=== PATIENT | female | born 1960 | race Caucasian/White ===

== ENCOUNTER 2020-01-19 08:42 | Emergency (ER) | payer OTHER, SELFPAY ==
[2020-01-19 08:51] VITALS: BP 157/86; PULSE 79; RESP 20; TEMP 36.7; O2SAT 100; BMI 23.8
--- NOTE | 2020-01-19 09:01 | DI.RAD.S_ITS ---
PROCEDURE: XR CHEST 1V INDICATIONS: chest pain TECHNIQUE: One view of the chest was acquired. COMPARISON: None. FINDINGS: Surgical changes and devices: None. Lungs and pleura: Lungs are clear. No pleural effusions or pneumothorax. Mediastinum: Mediastinal contours appear normal. Heart size is minimally prominent. Bones and chest wall: No suspicious bony lesions. Overlying soft tissues appear unremarkable. IMPRESSION: No acute pulmonary process. Dictated by: Neida Montero M.D. on 01/19/2020 at 9:49 Approved by: Neida Montero M.D. on 01/19/2020 at 9:55
[2020-01-19 09:10] VITALS: BP 130/80; BP 137/85; BP 150/89
--- NOTE | 2020-01-19 09:16 | ED.SYNCOPE ---
HPI - Syncope General Chief Complaint: Syncope Stated Complaint: Abdominal pain Time Seen by Provider: 01/19/20 08:58 Source: patient and EMS Mode of arrival: EMS Limitations: no limitations History of Present Illness HPI narrative: HPI: The patient is a 59-year-old female who was transported to the emergency department by ambulance after she had a syncopal attack at home that lasted approximately 20-30 seconds with gurgling respirations. According to the patient's who was present the patient passed out on the edge of the bed and he let her down to the floor. She had no convulsive or jerking activity typically seen with a seizure. Prior to passing-out the patient developed severe left lower quadrant abdominal pain that was sharp and stabbing as well as a severe persisting crampy in her left lower leg. She denies any recent fall or injury. Recently the patient had a dynamic cardiac stress test which was reported to have been normal. Eighteen months ago the patient had a right middle lobectomy for adenocarcinoma of the lung. She has not received any chemotherapy or radiation therapy. She is being evaluated and scanned every 6 months. She denies a history of diabetes mellitus seizure disorder stroke previous myocardial infarction history of COPD or asthma, migraines, TB, HIV, or hepatitis. She has had no known exposure to arm co bit 19. 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 She does not smoke cigarettes, vapor, chew tobacco, or use any drugs. She periodically drinks alcohol. She denies a history of any recent fever chills or sweats. She has a mild generalized headache at the present time without numbness tingling paresthesias anesthesia is pre CIS or paralysis. She has had no change in vision loss of vision or diplopia. She has had no recent nasal drainage sore throat trouble swallowing. She denies any chest pain cough shortness of breath but had palpitations last night while watching television. She has left lower quadrant abdominal pain as noted. However she has had no nausea vomiting hematemesis coffee-ground emesis diarrhea melena or hematochezia and no urinary symptoms. Related Data Previous Rx's Medication Instructions Recorded cyclobenzaprine 10 mg PO TID PRN #15 tab 01/19/20 naproxen [Naprosyn] 500 mg PO BID PRN #20 tab 01/19/20 Allergies Allergy/AdvReac Type Severity Reaction Status Date / Time iodine Allergy Mild Rash Verified 01/19/20 08:51 codeine AdvReac Verified 01/19/20 08:51 oxycodone AdvReac Verified 01/19/20 08:51 Review of Systems Review of Systems Narrative: All review of systems were negative except for those mentioned in the history of present illness. Patient History Social History Smoking Status: Never smoker Smoking Status: Never smoker alcohol intake frequency: holidays/special occasions only Substance Use Type: does not use Exam Narrative Exam Narrative: PHYSICAL EXAM: CONSTITUTIONAL: Awake, Alert, Oriented, Coherent, Cooperative in NAD. Does not appear toxic or ill. She is wearing a mask. HEAD: AT/NC EENT: PERRL, FROM of eyes, no discharge. No epistaxis or nasal drainage Oral mucosa is moist and pink, posterior pharynx is without erythema or exudate. NECK: Supple, no obvious JVD, Trachea is midline without stridor, no palpable LN. SPINE: No gross deformity, no palpable tenderness of the cervical, thoracic, lumbar or sacral spine. No CVA tenderness. THORAX: No deformity, retractions, chest wall tenderness. LUNGS: Clear with symmetrical breath sounds without respiratory distress HEART: Normal heart tones, regular rhythm and rate without murmur. ABDOMEN: Soft, non-tender, without guarding, rebound, rigidity or palpable mass. EXTREMITIES: No edema, cyanosis, deformity or calf tenderness SKIN: No rash, bruising, petechiae or purpura. NEURO: Awake, alert, oriented, conversive, cranial nerves II-XII are symmetrical , moves all 4 extremities . Initial Vital Signs Initial Vital Signs: Vital Signs Temperature 98.1 F 01/19/20 08:51 Pulse Rate 79 01/19/20 08:51 Respiratory Rate 20 01/19/20 08:51 Blood Pressure 157/86 H 01/19/20 08:51 Pulse Oximetry 100 01/19/20 08:51 Course Course Course Narrative: 1021: The patient's CT of her head with and without contrast and of the abdomen remains pending. The patient has normal renal function with a GFR greater than 60. Her white blood count hemoglobin are normal. Glucose is 122. Liver function test AST is slightly elevated at 38 ALT slightly elevated at 41. Her single-view chest x-ray is negative. CPK is 78. Lactate and troponin are both pending at this time. Clinically I believe that the patient had muscle spasms and left lower quadrant abdominal pain which resulted in a probable vasovagal syncopel. 11:05 CT of the patient's head reveals no acute intracranial pathology or problem. CT of the abdomen reveals; 1. No definite acute abnormality within the abdomen or pelvis. 2. Mild nodular appearance to the wall of the gallbladder is nonspecific and may be related to adenomyomatosis. However, early gallbladder wall inflammation cannot be completely excluded. Please consider a gallbladder ultrasound for further evaluation. 3. Possible mild constipation. Patient's urine reveals 1-5 white blood cells per high-power field, 30-100 white blood cells per high-power field squamous epithelial cells 1-5 per high-power field which is normal urine bacteria many urine is cultured. The patient will be evaluated for urinary tract infection. Orders Ordered: Discontinued Medications Sodium Chloride (Normal Saline 0.9%) 1,000 mls @ 1,000 mls/hr IV BOLUS ONE Stop: 01/19/20 10:13 Last Infusion: 01/19/20 11:46 Dose: 0 mls/hr Documented by: Admin: 01/19/20 09:49 Dose: 1,000 mls/hr Documented by: LÓPEZ Ketorolac Tromethamine (Toradol) 30 mg IV NOW ONE Stop: 01/19/20 09:12 Last Admin: 01/19/20 09:48 Dose: 30 mg Documented by: LÓPEZ Lorazepam (Ativan) 1 mg IV NOW ONE Stop: 01/19/20 09:12 Last Admin: 01/19/20 10:28 Dose: 1 mg Documented by: CARLOTA Vital Signs Vital signs: Vital Signs - 8 hr 01/19/20 08:51 01/19/20 09:10 01/19/20 09:50 Temperature 98.1 F Pulse Rate 79 Pulse Rate [Orthostatic Lying] 91 H Pulse Rate [Orthostatic Standing] 73 Respiratory Rate 20 Blood Pressure 157/86 H Blood Pressure [Orthostatic Lying] 130/80 137/85 Blood Pressure [Orthostatic Sitting] 150/89 H 150/89 H Blood Pressure [Orthostatic Standing] 137/85 130/80 Blood Pressure [Right Arm] Pulse Oximetry 100 01/19/20 10:00 Temperature Pulse Rate 79 Pulse Rate [Orthostatic Lying] Pulse Rate [Orthostatic Standing] Respiratory Rate 12 Blood Pressure Blood Pressure [Orthostatic Lying] Blood Pressure [Orthostatic Sitting] Blood Pressure [Orthostatic Standing] Blood Pressure [Right Arm] 137/85 Pulse Oximetry 100 MDM - Syncope Medical Records Attestation: I reviewed the patient's medical records. Lab Data Attestation: I reviewed the patient's lab results. Result diagrams: 01/19/20 09:19 01/19/20 09:19 Labs: Lab Results 01/19/20 01/19/20 01/19/20 Range/Units 09:19 09:19 09:19 WBC 9.2 (4.5-11.0) X10^3/uL RBC 4.25 (4.0-5.2) X10^6/uL Hgb 12.9 (12.0-16.0) g/dL Hct 38.6 (36-46) % MCV 90.9 (80-100) fL MCH 30.5 (26-34) PG MCHC 33.5 (30-36) % RDW 12.8 (11.6-14.8) % Plt Count 262 (150-400) X10^3/uL Neut % (Auto) 67.2 (50-75) % Lymph % (Auto) 22.8 L (25-40) % [place] % (Auto) 7.9 (3-14) % Eos % (Auto) 1.6 L (2-4) % Baso % (Auto) 0.5 (0-2) % Neut # (Auto) 6200 (6712-0154) /uL Lymph # (Auto) 2100 (2398-7882) /uL [place] # (Auto) 700 (0-900) /uL Eos # (Auto) 200 (0-450) /uL Baso # (Auto) 0 (0-100) /uL PT 11.6 (10.1-12.7) SECONDS INR 1.0 (0.9-1.3) APTT 28 (26.4-36.2) SECONDS Sodium 139 (137-145) mmol/L Potassium 3.8 (3.4-5.1) mmol/L Chloride 102 (98-107) mmol/L Carbon Dioxide 29 (22-32) mmol/L BUN 14 (7-17) mg/dL Creatinine 0.68 (0.52-1.04) mg/dL Estimated GFR > 60.0 (>60) mL/min BUN/Creatinine Ratio 20.6 (6-22) Glucose 122 H (70-100) mg/dL Lactate (0.7-2.1) mmol/L Calcium 9.4 (8.4-10.2) mg/dL Magnesium (1.6-2.3) mg/dL Total Bilirubin 0.6 (0.2-1.3) mg/dL AST 38 H (14-36) IU/L ALT 41 H (<35) IU/L Alkaline Phosphatase 95 (38-126) U/L Total Creatine Kinase 78 (30-135) U/L CK-MB (CK-2) TNP CK-MB (CK-2) Rel Index TNP Troponin I < 0.012 (0.01-0.034) ng/mL Total Protein 8.6 H (6.3-8.2) g/dL Albumin 4.5 (3.5-5.0) g/dL Globulin 4.1 (1.7-4.1) g/dL Albumin/Globulin Ratio 1.1 (1.0-2.8) Lipase 281 (23-300) U/L TSH (0.47-4.68) uIU/mL Urine RBC (0-5/HPF) Urine WBC (0-5/HPF) Ur Squamous Epith Cells (0-5/HPF) Urine Bacteria (None) Ur Culture Indicated? 01/19/20 01/19/20 01/19/20 Range/Units 09:19 09:19 10:07 WBC (4.5-11.0) X10^3/uL RBC (4.0-5.2) X10^6/uL Hgb (12.0-16.0) g/dL Hct (36-46) % MCV (80-100) fL MCH (26-34) PG MCHC (30-36) % RDW (11.6-14.8) % Plt Count (150-400) X10^3/uL Neut % (Auto) (50-75) % Lymph % (Auto) (25-40) % [place] % (Auto) (3-14) % Eos % (Auto) (2-4) % Baso % (Auto) (0-2) % Neut # (Auto) (7445-5708) /uL Lymph # (Auto) (6771-7036) /uL [place] # (Auto) (0-900) /uL Eos # (Auto) (0-450) /uL Baso # (Auto) (0-100) /uL PT (10.1-12.7) SECONDS INR (0.9-1.3) APTT (26.4-36.2) SECONDS Sodium (137-145) mmol/L Potassium (3.4-5.1) mmol/L Chloride (98-107) mmol/L Carbon Dioxide (22-32) mmol/L BUN (7-17) mg/dL Creatinine (0.52-1.04) mg/dL Estimated GFR (>60) mL/min BUN/Creatinine Ratio (6-22) Glucose (70-100) mg/dL Lactate (0.7-2.1) mmol/L Calcium (8.4-10.2) mg/dL Magnesium 1.9 (1.6-2.3) mg/dL Total Bilirubin (0.2-1.3) mg/dL AST (14-36) IU/L ALT (<35) IU/L Alkaline Phosphatase (38-126) U/L Total Creatine Kinase (30-135) U/L CK-MB (CK-2) CK-MB (CK-2) Rel Index Troponin I (0.01-0.034) ng/mL Total Protein (6.3-8.2) g/dL Albumin (3.5-5.0) g/dL Globulin (1.7-4.1) g/dL Albumin/Globulin Ratio (1.0-2.8) Lipase (23-300) U/L TSH 2.18 (0.47-4.68) uIU/mL Urine RBC 1-5/hpf (0-5/HPF) Urine WBC 30-100/hpf H (0-5/HPF) Ur Squamous Epith Cells 1-5 /hpf (0-5/HPF) Urine Bacteria Many (>30) H (None) Ur Culture Indicated? Specimen cultured 01/19/20 Range/Units 10:10 WBC (4.5-11.0) X10^3/uL RBC (4.0-5.2) X10^6/uL Hgb (12.0-16.0) g/dL Hct (36-46) % MCV (80-100) fL MCH (26-34) PG MCHC (30-36) % RDW (11.6-14.8) % Plt Count (150-400) X10^3/uL Neut % (Auto) (50-75) % Lymph % (Auto) (25-40) % [place] % (Auto) (3-14) % Eos % (Auto) (2-4) % Baso % (Auto) (0-2) % Neut # (Auto) (6141-8514) /uL Lymph # (Auto) (7172-9363) /uL [place] # (Auto) (0-900) /uL Eos # (Auto) (0-450) /uL Baso # (Auto) (0-100) /uL PT (10.1-12.7) SECONDS INR (0.9-1.3) APTT (26.4-36.2) SECONDS Sodium (137-145) mmol/L Potassium (3.4-5.1) mmol/L Chloride (98-107) mmol/L Carbon Dioxide (22-32) mmol/L BUN (7-17) mg/dL Creatinine (0.52-1.04) mg/dL Estimated GFR (>60) mL/min BUN/Creatinine Ratio (6-22) Glucose (70-100) mg/dL Lactate 1.1 (0.7-2.1) mmol/L Calcium (8.4-10.2) mg/dL Magnesium (1.6-2.3) mg/dL Total Bilirubin (0.2-1.3) mg/dL AST (14-36) IU/L ALT (<35) IU/L Alkaline Phosphatase (38-126) U/L Total Creatine Kinase (30-135) U/L CK-MB (CK-2) CK-MB (CK-2) Rel Index Troponin I (0.01-0.034) ng/mL Total Protein (6.3-8.2) g/dL Albumin (3.5-5.0) g/dL Globulin (1.7-4.1) g/dL Albumin/Globulin Ratio (1.0-2.8) Lipase (23-300) U/L TSH (0.47-4.68) uIU/mL Urine RBC (0-5/HPF) Urine WBC (0-5/HPF) Ur Squamous Epith Cells (0-5/HPF) Urine Bacteria (None) Ur Culture Indicated? Urine Dip Bedside Urine Glucose Negative Bedside Urine Bilirubin - Negative Bedside Urine Ketone - Negative Urine Specific [place] 1.015 Bedside Urine Occult Blood +/- Bedside Urine pH 7.0 Bedside Urine Protein - Negative Bedside Urine Urobilinogen - Negative Bedside Urine Nitrite + Positive Bedside Urine Leukocytes ++ 125 Esterase ECG Data Attestation: I personally reviewed and interpreted this ECG as follows: Interpretation: The patient's EKG obtained on January 18 at 09:2 2:26 a.m. reveals a sinus rhythm with a ventricular rate of 72. Intervals are normal. Center Line is normal. The patient has nonspecific ST segment changes. T-waves are inverted in leads III and V1 a normal variant. The EKG otherwise looks normal. Discharge Plan Departure Patient Disposition: Home Clinical Impression: Vasovagal syncope, Dehydration Discharge Date/Time: 01/19/20 11:51 Instructions: DI for Syncope in Adults (Fainting) Activity Restrictions/Additional Instructions: 1. Call your doctor's office today and make a follow-up appointment for 48-72 hours to be re-evaluated. 2. When you develop abdominal pain or leg cramps be careful when sitting up and standing up because you can become dizzy lightheaded and pass out. 3. Drink 2-3 L of fluid per day to make sure that you are well hydrated. 4. For the cramps in your legs take cyclobenzaprine 10 mg 3 times a day as needed. Take a pill before you go to bed at night. This may make you sleepy. 5. For pain and discomfort take Naprosyn 500 mg twice a day. 6. If you develop worsening pain, fever, chest pain, shortness of breath, racing of your heart, seizure activity, recurrent passing out return to the emergency department or proceed to the nearest emergency department where you are. 7. Follow-up and discuss the syncope evaluation with your primary care physician. You may need to have a Holter monitor echocardiogram and carotid Doppler studies. These can all be obtained as an outpatient. Prescriptions: New cyclobenzaprine 10 mg tablet 10 mg PO TID PRN (Reason: muscle spasm) Qty: 15 RF: 0 naproxen [Naprosyn] 500 mg tablet 500 mg PO BID PRN (Reason: pain) Qty: 20 RF: 0
[2020-01-19 09:27] LABS: Add Manual Diff / Slide Review NO; Basophils Absolute Auto 0 /uL (0-100); Basophils Percent Auto 0.5 % (0-2); Eosinophils Absolute Auto 200 /uL (0-450); Eosinophils Percent Auto 1.6 % (2-4); Hematocrit 38.6 % (36-46); Hemoglobin 12.9 g/dL (12.0-16.0); Lymphocytes Absolute Auto 2100 /uL (1100-4500); Lymphocytes Percent Auto 22.8 % (25-40); Mean Corpuscular HGB Conc 33.5 % (30-36); Mean Corpuscular Hemoglobin 30.5 PG (26-34); Mean Corpuscular Volume 90.9 fL (80-100); Monocytes Absolute Auto 700 /uL (0-900); Monocytes Percent Auto 7.9 % (3-14); Neutrophils Absolute Auto 6200 /uL (1500-7000); Neutrophils Percent Auto 67.2 % (50-75); Platelet Count 262 X10^3/uL (150-400); Red Blood Cell Count 4.25 X10^6/uL (4.0-5.2); Red Cell Distribution Width 12.8 % (11.6-14.8); White Blood Cell Count 9.2 X10^3/uL (4.5-11.0)
[2020-01-19 09:35] LABS: Prothrombin Time 11.6 SECONDS (10.1-12.7)
[2020-01-19 09:38] LABS: PTT Partial Thromboplastin Tim 28 SECONDS (26.4-36.2)
[2020-01-19 09:40] LABS: Alanine Aminotransferase 41 IU/L (<35); Albumin 4.5 g/dL (3.5-5.0); Albumin Globulin Ratio 1.1 (1.0-2.8); Alkaline Phosphatase 95 U/L (38-126); Aspartate Aminotransferase 38 IU/L (14-36); BUN Creatinine Ratio 20.6 (6-22); Bilirubin Total 0.6 mg/dL (0.2-1.3); Blood Urea Nitrogen 14 mg/dL (7-17); Calcium 9.4 mg/dL (8.4-10.2); Carbon Dioxide 29 mmol/L (22-32); Chloride 102 mmol/L (98-107); Creatine Kinase 78 U/L (30-135); Estimated Glomerular Filt Rate > 60.0 mL/min (>60); Globulin 4.1 g/dL (1.7-4.1); Glucose 122 mg/dL (70-100); HEMOLYSIS < 15 (0-50); Lipase 281 U/L (23-300); Potassium 3.8 mmol/L (3.4-5.1); Sodium 139 mmol/L (137-145); Total Protein 8.6 g/dL (6.3-8.2)
[2020-01-19] MEDS: KETOROLAC 60 MG/2 ML VIAL 30 MG IV (09:48)
[2020-01-19] MEDS: SODIUM CHLORIDE 0.9% 1,000 ML 1000 ML IV (09:49)
[2020-01-19 09:50] VITALS: BP 130/80; BP 137/85; BP 150/89; PULSE 73; PULSE 91
[2020-01-19 09:51] LABS: Magnesium 1.9 mg/dL (1.6-2.3)
[2020-01-19 09:52] LABS: Troponin I < 0.012 ng/mL (0.01-0.034)
[2020-01-19 10:00] VITALS: BP 137/85; PULSE 79; RESP 12; O2SAT 100
--- NOTE | 2020-01-19 10:13 | DI.CT.S_ITS ---
PROCEDURE: CT HEAD/BRAIN WO/W CON INDICATIONS: Mild headache, h/o of lung cancer, syncope TECHNIQUE: 4.5 mm thick angled axial sections acquired from the foramen magnum to the vertex before and after the administration of intravenous contrast, with coronal and sagittal reformats. For radiation dose reduction, the following was used: automated exposure control, adjustment of mA and/or kV according to patient size. COMPARISON: None. FINDINGS: Image quality: Excellent. CSF Spaces: Basal cisterns are patent. No extra-axial fluid collections. Ventricles are normal in size and shape. Brain: No midline shift. No intracranial bleeds or masses. No abnormal intracranial enhancement. Braun-white interface appears normal. Cerebellar tonsils are low-lying. Skull and face: Calvarium and visualized facial bones appear intact, without suspicious lesions. Sinuses: Visualized sinuses and mastoids are clear. IMPRESSION: 1. No acute intracranial process. Dictated by: Neida Montero M.D. on 01/19/2020 at 10:30 Approved by: Neida Montero M.D. on 01/19/2020 at 10:32
--- NOTE | 2020-01-19 10:13 | DI.CT.S_ITS ---
PROCEDURE: CT ABDOMEN PELVIS W CON INDICATIONS: Severe left lower quadrant abdominal pain TECHNIQUE: After the administration of oral and intravenous contrast, 5 mm thick sections acquired from the diaphragms to the symphysis. 5 mm thick coronal and sagittal reformats were performed. For radiation dose reduction, the following was used: automated exposure control, adjustment of mA and/or kV according to patient size. COMPARISON: None. FINDINGS: Image quality: Diagnostic. ABDOMEN: Lung bases: Lung bases are clear. Heart size is normal. Solid organs: Liver is normal in size and enhancement. The gallbladder is not enlarged. There is slight nodularity to the wall of the gallbladder. There may be a polyp versus gallstone within the neck of the gallbladder. Biliary system is non-dilated. Pancreas enhances normally. Spleen is normal in size and enhancement. No adrenal nodules. Kidneys are normal in size and enhancement, without hydronephrosis. Peritoneum and bowel: Stomach, small bowel, and colon loops are normal in caliber and wall thickness. No free fluid or air. No loculated fluid collections are evident. Moderate amount of residual stool is seen within the colon. The appendix is not clearly identified. Nodes and vessels: No retroperitoneal or mesenteric adenopathy. Aorta and inferior vena cava are normal in caliber. Miscellaneous: No ventral hernias. PELVIS: Genitourinary: Bladder wall thickness is normal. The uterus and ovaries are not enlarged. Miscellaneous: No inguinal hernias or adenopathy. Bones: No suspicious bony lesions. No vertebral body compression fractures. IMPRESSION: 1. No definite acute abnormality within the abdomen or pelvis. 2. Mild nodular appearance to the wall of the gallbladder is nonspecific and may be related to adenomyomatosis. However, early gallbladder wall inflammation cannot be completely excluded. Please consider a gallbladder ultrasound for further evaluation. 3. Possible mild constipation. Dictated by: Nadir Wells M.D. on 01/19/2020 at 9:33 Approved by: Nadir Wells M.D. on 01/19/2020 at 9:35
[2020-01-19 10:22] LABS: Thyroid Stimulating Hormone 2.18 uIU/mL (0.47-4.68)
[2020-01-19 10:26] LABS: Lactate (Lactic Acid) 1.1 mmol/L (0.7-2.1)
[2020-01-19 10:27] LABS: Bacteria Urine Many (>30); RBC Urine 1-5/HPF (0-5/HPF); Squamous Epithelial Cell Urine 1-5 /HPF (0-5/HPF); WBC Urine 30-100/HPF (0-5/HPF)
[2020-01-19 10:28] LABS: Culture Indicated Urine Specimen Cultured
[2020-01-19] MEDS: LORazepam 2 MG/ML INJ 1 MG IV (10:28)
[2020-01-19 11:26] VITALS: BP 130/72; PULSE 73; RESP 16; O2SAT 100
[2020-01-19 11:47] VITALS: BP 107/69; PULSE 82; RESP 12; O2SAT 99
== END 2020-01-19 11:51 | disposition home or self-care (01) ==
PROVIDERS: Emergency Provider Emergency Medicine
DX: R55 Syncope and collapse (principal); E86.0 Dehydration; R51 Headache; R10.32 Left lower quadrant pain; R07.9 Chest pain, unspecified; Z85.118 Personal history of other malignant neoplasm of bronchus and lung
CPT/HCPCS: 36415; 70470; 71045; 74177; 80053; 81003; 81015; 82550; 83605; 83690; 83735; 84443; 84484; 85025; 85610; 85730; 87077; 87086; 87186; 93005; 96361; 96374; 96375; 99285; J1885; J2060; Q9967

== ENCOUNTER 2020-04-18 07:14 | Emergency (ER) | payer OTHER, SELFPAY ==
[2020-04-18] VITALS (7 sets, daily range): BP systolic 122–169; BP diastolic 73–85; PULSE 61–82; RESP 12–20; TEMP 36.9; O2SAT 97–100; BMI 24.2
--- NOTE | 2020-04-18 07:29 | DI.RAD.S_ITS ---
PROCEDURE: XR CHEST 1V INDICATIONS: Chest pain TECHNIQUE: One view of the chest was acquired. COMPARISON: None. FINDINGS: Surgical changes and devices: Chains sutures and a surgical clip project over the right hilum and lateral aspect of the right main pulmonary artery. Lungs and pleura: There is a juxtaphrenic peak of the right hemidiaphragm consistent with volume loss related to partial lobectomy. No focal air space opacity identified. The pleural spaces appear clear. Mediastinum: Mediastinal contours appear normal. Heart size is normal. Bones and chest wall: No suspicious bony lesions. Overlying soft tissues appear unremarkable. IMPRESSION: No acute cardiopulmonary process demonstrated. Post-surgical changes in the right lung as described above Dictated by: Bran Terrell M.D. on 04/18/2020 at 8:39 Approved by: Bran Terrell M.D. on 04/18/2020 at 8:43
--- NOTE | 2020-04-18 07:32 | ED.CHESTPAIN ---
HPI - Chest Pain General Chief Complaint: Chest Pain Stated Complaint: chest pain through to back Time Seen by Provider: 04/18/20 07:32 Source: patient Mode of arrival: Ambulatory Limitations: no limitations History of Present Illness HPI narrative: Patient is a 59-year-old female history of hypertension presenting with chest pain. She says she woke up this morning and felt some chest tightness radiating through to her back. She says it has improved now. She thinks maybe it was worse with exertion. She denies any shortness of breath. She has never experienced anything like this in the past prior history of coronary artery disease. MD complaint: chest pain Onset (ago): minute(s) Duration: constant Onset: during rest Pain location: substernal Severity: moderate Quality: tightness Pain radiation: back Related Data Previous Rx's Medication Instructions Recorded cyclobenzaprine 10 mg PO TID PRN #15 tab 01/19/20 naproxen [Naprosyn] 500 mg PO BID PRN #20 tab 01/19/20 Allergies Allergy/AdvReac Type Severity Reaction Status Date / Time iodine Allergy Mild Rash Verified 04/18/20 07:36 codeine AdvReac Verified 04/18/20 07:36 oxycodone AdvReac Verified 04/18/20 07:36 Review of Systems Review of Systems Narrative: GENERAL: Denies chills, fatigue, malaise, fever, sweats, travel HEENT: Denies sinus pain, ear pain, sore throat, difficulty swallowing, neck pain RESPIRATORY: Denies dyspnea, cough, wheezing, hemoptysis, sputum. CARDIOVASCULAR: See HPI GASTROINTESTINAL: Denies nausea, vomiting, abdominal pain, diarrhea, constipation, melena. : Denies dysuria, frequency, incontinence, hematuria, urinary retention, flank pain. MUSCULOSKELETAL: Denies weakness, joint pain, or bony pain SKIN: No rash, no erythema, no pruritus NEUROLOGIC: Denies weakness, dizziness, headache, numbness, change in speech, confusion PSYCHIATRIC: No concerning psychosocial issues. 12 point review of systems is negative except for those stated above and HPI Patient History Medical History Hyperlipidemia (Acute) Social History Smoking Status: Never smoker Smoking Status: Never smoker alcohol intake frequency: holidays/special occasions only Substance Use Type: does not use Exam Initial Vital Signs Initial Vital Signs: Vital Signs Temperature 98.4 F 04/18/20 07:20 Pulse Rate 80 04/18/20 07:20 Respiratory Rate 20 04/18/20 07:20 Blood Pressure 169/85 H 04/18/20 07:20 Pulse Oximetry 100 04/18/20 07:20 GENERAL: Well-appearing, well-nourished and in no acute distress. HEENT: Head atraumatic,EOMI, pupils reactive, face symmetric CARDIOVASCULAR: Regular rate and rhythm without murmurs, rubs or gallops. RESPIRATORY: Breath sounds equal bilaterally, no wheezes rales or rhonchi. ABDOMEN: Soft, nontender. Normoactive bowel sounds all 4 quadrants. No guarding or rebound. EXTREMITIES: Normal range of motion, no clubbing or edema. Neurovascularly intact NEUROLOGICAL: Alert and oriented x4.Normal gait and speech. Cranial nerves II through XII grossly intact. SKIN: Warm, dry, no laceration, no petechiae, no rashes or lesions. Scores HEART Score Heart Score history: Slightly Suspicious Heart Score EKG: Normal Heart Score Age: 45-64 years old Heart Score risk factors: 1-2 risk factors Heart Score troponin: < or = to normal limit Heart Score Total: 2 Course Orders Ordered: ED Orders 04/18/20 07:15 Complete Blood Count AUTO DIFF Stat Comprehensive Metabolic Panel Stat Lipase Stat Partial Thromboplastin Time Stat Prothrombin Time INR Stat Troponin & CK Cardiac Panel Stat 04/18/20 07:29 XR chest 1V Stat 04/18/20 07:42 EKG-12 Lead Stat 04/18/20 11:07 Troponin I Stat Discontinued Medications Aspirin (Aspirin Chew) 324 mg PO NOW ONE Stop: 04/18/20 07:43 Last Admin: 04/18/20 07:49 Dose: 324 mg Documented by: LÓPEZ Nitroglycerin (Nitrostat) 0.4 mg SL NOW ONE Stop: 04/18/20 07:43 Last Admin: 04/18/20 07:50 Dose: 0.4 mg Documented by: LÓPEZ Vital Signs Vital signs: Vital Signs - 8 hr 04/18/20 07:20 04/18/20 07:50 04/18/20 08:00 Temperature 98.4 F Pulse Rate 80 82 81 Respiratory Rate 20 20 Blood Pressure 169/85 H 145/78 H Blood Pressure [Right Arm] 123/83 Pulse Oximetry 100 97 04/18/20 09:00 04/18/20 10:30 04/18/20 11:28 Temperature Pulse Rate 62 68 64 Respiratory Rate 12 20 19 Blood Pressure Blood Pressure [Right Arm] 122/75 128/73 140/79 Pulse Oximetry 97 98 97 04/18/20 12:03 Temperature Pulse Rate 61 Respiratory Rate 16 Blood Pressure 132/74 Blood Pressure [Right Arm] Pulse Oximetry 97 MDM - Chest Pain Lab Data Attestation: I reviewed the patient's lab results. Result diagrams: 04/18/20 07:15 04/18/20 07:15 Labs: Lab Results 04/18/20 04/18/20 04/18/20 Range/Units 07:15 07:15 07:15 WBC 6.4 (4.5-11.0) X10^3/uL RBC 4.24 (4.0-5.2) X10^6/uL Hgb 13.1 (12.0-16.0) g/dL Hct 38.8 (36-46) % MCV 91.6 (80-100) fL MCH 30.9 (26-34) PG MCHC 33.8 (30-36) % RDW 12.5 (11.6-14.8) % Plt Count 275 (150-400) X10^3/uL Neut % (Auto) 40.6 L (50-75) % Lymph % (Auto) 42.6 H (25-40) % [place] % (Auto) 12.3 (3-14) % Eos % (Auto) 3.8 (2-4) % Baso % (Auto) 0.7 (0-2) % Neut # (Auto) 2600 (0044-0659) /uL Lymph # (Auto) 2700 (7290-3326) /uL [place] # (Auto) 800 (0-900) /uL Eos # (Auto) 200 (0-450) /uL Baso # (Auto) 0 (0-100) /uL PT 10.8 (10.1-12.7) SECONDS INR 0.9 (0.9-1.3) APTT 32 D (26.4-36.2) SECONDS Sodium 141 (137-145) mmol/L Potassium 3.5 (3.4-5.1) mmol/L Chloride 104 (98-107) mmol/L Carbon Dioxide 30 (22-32) mmol/L BUN 11 (7-17) mg/dL Creatinine 0.60 (0.52-1.04) mg/dL Estimated GFR > 60.0 (>60) mL/min BUN/Creatinine Ratio 18.3 (6-22) Glucose 119 H (70-100) mg/dL Calcium 9.3 (8.4-10.2) mg/dL Total Bilirubin 0.4 (0.2-1.3) mg/dL AST 44 H (14-36) IU/L ALT 45 H (<35) IU/L Alkaline Phosphatase 73 (38-126) U/L Total Creatine Kinase 64 (30-135) U/L CK-MB (CK-2) TNP CK-MB (CK-2) Rel Index TNP Troponin I < 0.012 (0.01-0.034) ng/mL Total Protein 8.1 (6.3-8.2) g/dL Albumin 4.4 (3.5-5.0) g/dL Globulin 3.7 (1.7-4.1) g/dL Albumin/Globulin Ratio 1.2 (1.0-2.8) Lipase 394 H (23-300) U/L 06/25/20 Range/Units 11:07 WBC (4.5-11.0) X10^3/uL RBC (4.0-5.2) X10^6/uL Hgb (12.0-16.0) g/dL Hct (36-46) % MCV (80-100) fL MCH (26-34) PG MCHC (30-36) % RDW (11.6-14.8) % Plt Count (150-400) X10^3/uL Neut % (Auto) (50-75) % Lymph % (Auto) (25-40) % [place] % (Auto) (3-14) % Eos % (Auto) (2-4) % Baso % (Auto) (0-2) % Neut # (Auto) (1766-1353) /uL Lymph # (Auto) (9539-0926) /uL [place] # (Auto) (0-900) /uL Eos # (Auto) (0-450) /uL Baso # (Auto) (0-100) /uL PT (10.1-12.7) SECONDS INR (0.9-1.3) APTT (26.4-36.2) SECONDS Sodium (137-145) mmol/L Potassium (3.4-5.1) mmol/L Chloride (98-107) mmol/L Carbon Dioxide (22-32) mmol/L BUN (7-17) mg/dL Creatinine (0.52-1.04) mg/dL Estimated GFR (>60) mL/min BUN/Creatinine Ratio (6-22) Glucose (70-100) mg/dL Calcium (8.4-10.2) mg/dL Total Bilirubin (0.2-1.3) mg/dL AST (14-36) IU/L ALT (<35) IU/L Alkaline Phosphatase (38-126) U/L Total Creatine Kinase (30-135) U/L CK-MB (CK-2) CK-MB (CK-2) Rel Index Troponin I < 0.012 (0.01-0.034) ng/mL Total Protein (6.3-8.2) g/dL Albumin (3.5-5.0) g/dL Globulin (1.7-4.1) g/dL Albumin/Globulin Ratio (1.0-2.8) Lipase (23-300) U/L Imaging Data Chest x-ray: Radiologist's Impression: PROCEDURE: XR CHEST 1V INDICATIONS: Chest pain TECHNIQUE: One view of the chest was acquired. COMPARISON: None. FINDINGS: Surgical changes and devices: Chains sutures and a surgical clip project over the right hilum and lateral aspect of the right main pulmonary artery. Lungs and pleura: There is a juxtaphrenic peak of the right hemidiaphragm consistent with volume loss related to partial lobectomy. No focal air space opacity identified. The pleural spaces appear clear. Mediastinum: Mediastinal contours appear normal. Heart size is normal. Bones and chest wall: No suspicious bony lesions. Overlying soft tissues appear unremarkable. IMPRESSION: No acute cardiopulmonary process demonstrated. Post-surgical changes in the right lung as described above Dictated by: Bran Terrell M.D. on 04/18/2020 at 8:39 ECG Data Attestation: I personally reviewed and interpreted this ECG as follows: Prior ECG tracings: available for review Interpretation: Normal sinus rhythm rate 77 p.r. interval [address] elevation depression or T-wave inversion EKG 2. Normal sinus rhythm rate 62 p.r. interval 148 QRS [address] elevation depression or T-wave inversion MDM Narrative Medical decision making narrative: Patient has 2-troponin she is a low risk heart score she is chest pain-free after 1 nitroglycerin. She has had a stress test the thought it was about a year ago and was negative. 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 I recommend she follow up for repeat testing and to return to the ED if chest pain returns. Discharge Plan Departure Patient Disposition: Home Clinical Impression: Atypical chest pain Discharge Date/Time: 04/18/20 12:03 Instructions: DI for Atypical Chest Pain Activity Restrictions/Additional Instructions: *You have been diagnosed with atypical chest pain *What to do: It is recommended that you follow-up with her primary care provider and have it further cardiac testing done. At this time you may go home. However if her chest pain returned do need to return to the ER immediately. *Continue to take medications as directed Aspirin 81 mg once a day *Follow up with your primary care provider in 2-3 days *Return to ER if you should have increasing chest pain shortness of breath or any new, worsening or concerning symptoms Prescriptions: No Action cyclobenzaprine 10 mg tablet 10 mg PO TID PRN (Reason: muscle spasm) Qty: 15 RF: 0 naproxen [Naprosyn] 500 mg tablet 500 mg PO BID PRN (Reason: pain) Qty: 20 RF: 0 Referrals: Joselyn Cason [Primary Care Provider] -
[2020-04-18 07:44] LABS: Add Manual Diff / Slide Review NO; Basophils Absolute Auto 0 /uL (0-100); Basophils Percent Auto 0.7 % (0-2); Eosinophils Absolute Auto 200 /uL (0-450); Eosinophils Percent Auto 3.8 % (2-4); Hematocrit 38.8 % (36-46); Hemoglobin 13.1 g/dL (12.0-16.0); Lymphocytes Absolute Auto 2700 /uL (1100-4500); Lymphocytes Percent Auto 42.6 % (25-40); Mean Corpuscular HGB Conc 33.8 % (30-36); Mean Corpuscular Hemoglobin 30.9 PG (26-34); Mean Corpuscular Volume 91.6 fL (80-100); Monocytes Absolute Auto 800 /uL (0-900); Monocytes Percent Auto 12.3 % (3-14); Neutrophils Absolute Auto 2600 /uL (1500-7000); Neutrophils Percent Auto 40.6 % (50-75); Platelet Count 275 X10^3/uL (150-400); Red Blood Cell Count 4.24 X10^6/uL (4.0-5.2); Red Cell Distribution Width 12.5 % (11.6-14.8); White Blood Cell Count 6.4 X10^3/uL (4.5-11.0)
[2020-04-18 07:46] LABS: INR 0.9 (0.9-1.3); Prothrombin Time 10.8 SECONDS (10.1-12.7)
[2020-04-18 07:49] LABS: PTT Partial Thromboplastin Tim 32 SECONDS (26.4-36.2)
[2020-04-18] MEDS: ASPIRIN 81 MG CHEW TAB 324 MG PO (07:49)
[2020-04-18 07:50] LABS: Alanine Aminotransferase 45 IU/L (<35); Albumin 4.4 g/dL (3.5-5.0); Albumin Globulin Ratio 1.2 (1.0-2.8); Alkaline Phosphatase 73 U/L (38-126); Aspartate Aminotransferase 44 IU/L (14-36); BUN Creatinine Ratio 18.3 (6-22); Bilirubin Total 0.4 mg/dL (0.2-1.3); Blood Urea Nitrogen 11 mg/dL (7-17); Calcium 9.3 mg/dL (8.4-10.2); Carbon Dioxide 30 mmol/L (22-32); Chloride 104 mmol/L (98-107); Creatine Kinase 64 U/L (30-135); Estimated Glomerular Filt Rate > 60.0 mL/min (>60); Globulin 3.7 g/dL (1.7-4.1); Glucose 119 mg/dL (70-100); HEMOLYSIS 16 (0-50); Lipase 394 U/L (23-300); Potassium 3.5 mmol/L (3.4-5.1); Sodium 141 mmol/L (137-145); Total Protein 8.1 g/dL (6.3-8.2)
[2020-04-18] MEDS: NITROGLYCERIN 0.4 MG SL TAB SL (07:50)
[2020-04-18 08:02] LABS: Troponin I < 0.012 ng/mL (0.01-0.034)
[2020-04-18 11:37] LABS: Troponin I < 0.012 ng/mL (0.01-0.034)
== END 2020-04-18 12:03 | disposition home or self-care (01) ==
PROVIDERS: Emergency Provider Emergency Medicine; PCP Internal Medicine
DX: R07.89 Other chest pain (principal); I10 Essential (primary) hypertension
CPT/HCPCS: 36415; 71045; 80053; 82550; 83690; 84484; 85025; 85610; 85730; 93005; 99284; 99285

== ENCOUNTER → 2020-12-09 15:40 | Outpatient (CLI) | payer OTHER, SELFPAY ==
--- NOTE | 2020-12-09 15:42 | DI.MG.S_ITS ---
BILATERAL DIGITAL SCREENING MAMMOGRAM 3D/2D WITH CAD: 12/09/2020 CLINICAL: Routine screening. Comparison is made to exams dated: 11/28/2019 mammogram, 11/04/2017 mammogram, and 09/07/2016 mammogram - outside location. The tissue of both breasts is heterogeneously dense. This may lower the sensitivity of mammography. Current study was also evaluated with a Computer Aided Detection (CAD) system. There are benign calcifications in the left breast. No significant masses, calcifications, or other findings are seen in either breast. There has been no significant interval change. IMPRESSION: BENIGN There is no mammographic evidence of malignancy. A 1 year screening mammogram is recommended. This exam was interpreted at Station ID: [id number]. NOTE: For mammograms, a report in lay terms will be sent to the patient. Approximately 15% of breast malignancies will not be visualized mammographically. In the management of a palpable breast mass, a negative mammogram must not discourage biopsy of a clinically suspicious lesion. Electronically Signed By: Miguel acosta/yanni:12/09/2020 16:12:06 letter sent: Normal Exam ACR BI-RADS Category 2: Benign Finding(s) 3342F
== END ==
PROVIDERS: Family Provider Internal Medicine; PCP Internal Medicine; Referring Provider Internal Medicine; Visit Provider Internal Medicine
DX: Z12.31 Encounter for screening mammogram for malignant neoplasm of breast (principal)
CPT/HCPCS: 77063; 77067